=== PATIENT | male | born 1985 | race Caucasian/White ===

== ENCOUNTER 2017-06-23 20:08 | Inpatient (IN) | payer MEDICARE ==
[2017-06-23] MEDS ORDERED: HALOPERIDOL LACTATE 5 MG/ML 1 ML VIAL IM STA (21:00)
[2017-06-23] MEDS ORDERED: diphenhydrAMINE 50 MG/ML 1 ML VIAL IM STA (21:00)
[2017-06-23] MEDS ORDERED: LORazepam 2 MG/ML INJ IM STA (21:00)
[2017-06-23 21:17] LABS: Basophils # (A) 0.1 k/uL (0-0.2); Basophils % (A) 0 %; Eosinophils # (A) 0.3 k/uL (0-0.7); Eosinophils % (A) 1 %; HCT 51.6 % (39.0-53.0); HGB 16.8 gm/dL (13.0-17.5); Lymphocytes % (A) 9 %; MCHC 32.5 g/dL (31.0-37.0); MCV 92.1 fL (80.0-100.0); Mean Platelet Volume 9.8; Monocytes # (A) 1.3 k/uL (0-1.0); Monocytes % (A) 6 %; Neutrophils # (A) 17.4 k/uL (1.3-7.7); Neutrophils % (A) 82 %; Platelet Count 244 k/uL (150-450); RDW 14.7 % (11.5-15.5); WBC 21.3 k/uL (3.8-10.6)
[2017-06-23 21:26] LABS: ALT 46 U/L (21-72); AST 36 U/L (17-59); Albumin 4.9 g/dL (3.5-5.0); Alkaline Phosphatase 116 U/L (38-126); Anion Gap 26 mmol/L; Blood Urea Nitrogen 13 mg/dL (9-20); Calcium 10.3 mg/dL (8.4-10.2); Carbon Dioxide 18 mmol/L (22-30); Chloride 105 mmol/L (98-107); Glucose 91 mg/dL (74-99); Potassium 4.2 mmol/L (3.5-5.1); Sodium 149 mmol/L (137-145); Total Bilirubin 1.1 mg/dL (0.2-1.3); Total Protein 7.2 g/dL (6.3-8.2)
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
[2017-06-23] MEDS ORDERED: SODIUM CHLORIDE 0.9% 1,000 ML IV ONE (22:28)
[2017-06-23] MEDS ORDERED: SODIUM CHLORIDE 0.9% 1,000 ML IV STA (23:51)
[2017-06-24 00:17] LABS: Appearance,Urine Clear (Clear); Bilirubin,Urine Negative (Negative); Blood,Urine Negative (Negative); Color,Urine Yellow; Glucose,Urine (UA) Negative (Negative); Ketones,Urine 2+ (Negative); Leukocyte Esterase,Urine Negative (Negative); Nitrite,Urine Negative (Negative); Protein,Urine Trace (Negative); Specific Gravity,Urine 1.023 (1.001-1.035)
[2017-06-24 00:40] LABS: Amphetamine Screen,Urine Not Detected (NotDetected); Barbiturate Screen,Urine Not Detected (NotDetected); Benzodiazepines Screen,Urine Not Detected (NotDetected); Cocaine Screen,Urine Not Detected (NotDetected); Methadone Screen, Urine Not Detected (NotDetected); Opiate Screen,Urine Not Detected (NotDetected); Oxycodone Screen, Urine Not Detected (NotDetected); Phencyclidine Screen,Urine Not Detected (NotDetected); Tricyclic Antidepressant,Urine Not Detected (NotDetected)
[2017-06-24 00:41] LABS: Urn Cannabinoid Scrn Not Detected (NotDetected)
[2017-06-24 01:40] LABS: Basophils % (A) 0 %; Eosinophils # (A) 0.2 k/uL (0-0.7); Eosinophils % (A) 1 %; HCT 44.4 % (39.0-53.0); HGB 14.8 gm/dL (13.0-17.5); Lymphocytes # (A) 1.1 k/uL (1.0-4.8); Lymphocytes % (A) 8 %; MCH 30.6 pg (25.0-35.0); MCHC 33.3 g/dL (31.0-37.0); Mean Platelet Volume 7.5; Monocytes # (A) 0.6 k/uL (0-1.0); Monocytes % (A) 4 %; Neutrophils % (A) 86 %; Platelet Count 191 k/uL (150-450); RBC 4.83 m/uL (4.30-5.90); RDW 13.9 % (11.5-15.5)
[2017-06-24 01:55] LABS: Anion Gap 10 mmol/L; Blood Urea Nitrogen 12 mg/dL (9-20); Calcium 9.2 mg/dL (8.4-10.2); Carbon Dioxide 25 mmol/L (22-30); Chloride 109 mmol/L (98-107); Glucose 87 mg/dL (74-99); Sodium 144 mmol/L (137-145)
[2017-06-24] MEDS ORDERED: LORazepam 2 MG/ML INJ IV STA (14:46)
[2017-06-24] MEDS ORDERED: MAGNESIUM HYDROXIDE 2,400 MG/10 ML CUP PO PRN (18:18)
[2017-06-24] MEDS ORDERED: ZIPRASIDONE 20 MG VIAL IM PRN (18:18)
[2017-06-24] MEDS ORDERED: ACETAMINOPHEN TAB 325 MG TAB PO PRN (18:18)
[2017-06-24] MEDS ORDERED: MAG HYDROX/AL HYDROX/SIMETH 30 ML CUP PO PRN (18:18)
[2017-06-24] MEDS ORDERED: OLANZapine ODT 10 MG TAB PO PRN (18:27)
[2017-06-24] MEDS ORDERED: LORazepam 2 MG/ML INJ IM PRN (18:30)
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
[2017-06-25 07:50] LABS: HCT 44.6 % (39.0-53.0); HGB 15.3 gm/dL (13.0-17.5); MCH 30.9 pg (25.0-35.0); MCHC 34.2 g/dL (31.0-37.0); MCV 90.2 fL (80.0-100.0); Mean Platelet Volume 7.1; Platelet Count 217 k/uL (150-450); RBC 4.95 m/uL (4.30-5.90); RDW 12.7 % (11.5-15.5); WBC 10.6 k/uL (3.8-10.6)
[2017-06-25 08:17] LABS: Anion Gap 11 mmol/L; Blood Urea Nitrogen 8 mg/dL (9-20); Calcium 9.7 mg/dL (8.4-10.2); Carbon Dioxide 24 mmol/L (22-30); Chloride 106 mmol/L (98-107); Glucose 93 mg/dL (74-99); Potassium 4.1 mmol/L (3.5-5.1); Sodium 141 mmol/L (137-145)
[2017-06-25] MEDS: NICOTINE 14MG/24HR PATCH TRANSDERM SCH (08:32)
--- NOTE | 2017-06-25 11:01 | XR ---
EXAMINATION TYPE: XR chest 1V DATE OF EXAM: 06/25/2017 CLINICAL HISTORY: Cough and congestion. TECHNIQUE: Single AP portable frontal upright view of the chest is obtained. COMPARISON: None FINDINGS: There is no focal air space opacity, pleural effusion, or pneumothorax seen. The cardiac silhouette size is within normal limits. The osseous structures are intact. IMPRESSION: No suspicious acute pulmonary process.
--- NOTE | 2017-06-25 11:23 | P.PN ---
Subjective Progress Note Date: 06/25/17 Patient has no complaints, speech appears pressured, unable to sit still, looking around wildly. No acute events overnight Objective - Vital Signs Vital signs: Vital Signs Temp 97.5 F L 06/25/17 02:57 Pulse 96 06/25/17 02:57 Resp 18 06/25/17 02:57 BP 116/83 06/25/17 02:57 Pulse Ox 98 06/24/17 19:09 Intake & Output 06/24/17 06/25/17 06/25/17 18:59 06:59 18:59 Weight 112.7 kg - Exam Constitutional: No acute distress, conversant, pleasant Eyes: Anicteric sclerae, moist conjunctiva, no lid-lag, PERRLA ENMT: NC/AT,Oropharynx clear, no erythema, exudates Neck:Supple, FROM, no masses, or JVD, No carotid bruits; No thyromegaly Lungs: Clear to auscultation, Clear to percussion, Normal respiratory effort, no accessory muscle use Cardiovascular: Heart regular in rate and rhythm, No murmurs, gallops, or rubs no peripheral edema Abdominal: Soft Nontender, nom distended, no guarding, no rebound or rigidity, Normoactive bowel sounds No hepatomegaly, No splenomegaly, No palpable mass No abdominal wall hernia noted Skin: Normal temperature, tone, texture, turgor, No induration No subcutaneous nodules, No rash, lesions, No ulcers Extremities:No digital cyanosis No clubbing, Pedal pulses intact and symmetrical Radial pulses intact and symmetrical Normal gait and station, No calf tenderness Psychiatric: Alert and oriented to person, place and time, manic affect, tangential speech, pressured speech appears anxious, Neuro: Muscles Strength 5/5 in all 4 extremities, Sensation to light touch grossly present throughout, Cranial nerves II-XII grossly intact. No focal sensory deficits - Labs CBC & Chem 7: 06/25/17 07:27 06/25/17 07:27 Labs: Abnormal Lab Results - Last 24 Hours (Table) 06/25/17 Range/Units 07:27 BUN 8 L (9-20) mg/dL Creatinine 0.56 L (0.66-1.25) mg/dL Assessment and Plan Assessment: leukocytosis * Resolved, likely reactive -Decreased without any antibiotic intervention -Chest x-ray negative for any infectious etiology -Urinalysis negative Hypernatremia with hypercalcemia * resolved -Likely secondary to dehydration -Status post IV fluids -Normal BMP Delusions/hallucinations -Your psych management Patient medically stable sign off today will defer to management per psychiatry
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
[2017-06-25] MEDS ORDERED: LITHIUM CARBONATE 300 MG CAP PO STA (16:52)
[2017-06-25] MEDS: LORazepam 1 MG TAB PO PRN (17:32)
[2017-06-25] MEDS: LITHIUM CARBONATE 300 MG CAP PO SCH (21:13)
[2017-06-25] MEDS: OLANZapine 10 MG TAB PO SCH (21:13)
[2017-06-26] MEDS: NICOTINE 14MG/24HR PATCH TRANSDERM SCH (09:00)
[2017-06-26] MEDS: LITHIUM CARBONATE 300 MG CAP PO SCH ×3 (09:00→20:54)
--- NOTE | 2017-06-26 14:52 | P.PN ---
Progress Note - Text Date of service: 06/27/2017 Chief complaint: "I want to leave here " Subjective: The patient has been seen today as follow-up, chart reviewed, case discussed with the treatment team. Patient slept about more than 6 hours last night. Patient has been not going to any groups or other unit activities. Patient reports fair appetite. The patient presented slightly better with less tangential and redirected. He still has racing thoughts with flight of ideas and very fixated on leaving here. First I was informed by nurses that he refused his morning medications but he agreed to take them after he met with me and we discussed the medications. The patient reported no suicidal thoughts and denies any hallucinations but he still very paranoid, has minimal interactions with others and at times very loud and bizarre speech. The patient is compliant with his medications and denies any adverse reactions. Review of other systems: Patient denies any physical symptoms besides what has been mentioned above. No breathing problems, no chest pain reported today. Objective: Vitals has been reviewed. Mental status examination; Appearance: The patient appears stated age, disheveled, overweight. Gait/posture: Normal gait, with normal arm swinging and no abnormal movements. Attitude and behavior: Argumentative, to some degree combative, intermittent eye contact. Motor activity: Increased and agitated. Speech: Hyper verbal, pressured, loud. Mood: Very irritable and at times agitated Affect: Expansive and labile Thought form: Circumstantial, tangential, flight of ideas. Thought content, disorganized denies suicidal thoughts denies homicidal thoughts but apparently paranoid. Perception: Denies any hallucinations but appears to respond to internal stimuli. Attention: No major impairment. Orientation: oriented to time, place, person and situation. Insight and judgment: Patient has poor judgment and insight about his psychiatric illness but he has better insight about psychiatric treatment. Assessment: Rule out bipolar disorder manic episode with psychotic features Rule out schizoaffective disorder bipolar type Plan: Continue with inpatient psychiatric hospitalization for monitoring and continue treatment. Continue group therapy and other unit activities. Continue psychiatric medications: Zyprexa for psychotic symptoms and [place] as a mood stabilizer Will obtain lithium level after 3 days of stabilization on the medication and consider further adjustment of the dose guided by the level.
[2017-06-26] MEDS: OLANZapine 10 MG TAB PO SCH (20:54)
[2017-06-27] MEDS: NICOTINE 14MG/24HR PATCH TRANSDERM SCH (10:15)
[2017-06-27] MEDS: LITHIUM CARBONATE 300 MG CAP PO SCH ×3 (10:15→21:06)
--- NOTE | 2017-06-27 15:54 | P.PN ---
Progress Note - Text Date of service: 06/27/2017 Chief complaint: "I have all the paper to let me go" Subjective: The patient has been seen today as follow-up, chart reviewed, case discussed with the treatment team. Patient slept about 5 hours last night. Patient has been going to very few groups and other unit activities. Patient reports fair appetite. Patient presents the same as yesterday, psychotic, racing, circumstantial and tangential. He brought to me a copy of the certificate paper and told me this paper will mandate me to release him from the hospital today. The patient was redirected but not able to fully understand his psychiatric condition and requirements to get discharged including stabilization of his mental illness. Patient still has bizarre talk about his father is coming to take him. Patient still hyper verbal and circumstantial. He denies S/H ideation. He denies A/V hallucinations but patient is not fully reliable in his history. Patient is not aggressive but he could be yelling and has eye starring sometimes. The patient is compliant with his medications and denies any adverse reactions. Review of other systems: Patient denies any physical symptoms besides what has been mentioned above. No breathing problems, no chest pain reported today. Objective: Vitals has been reviewed. Mental status examination; Appearance: The patient appears stated age, disheveled, overweight. Gait/posture: Normal gait, with normal arm swinging and no abnormal movements. Attitude and behavior: Argumentative, to some degree combative, intermittent eye contact. Motor activity: Increased and agitated. Speech: Hyper verbal, pressured, loud. Mood: Very irritable and at times agitated Affect: Expansive and labile Thought form: Circumstantial, tangential, flight of ideas. Thought content, disorganized denies suicidal thoughts denies homicidal thoughts but apparently paranoid. Perception: Denies any hallucinations but appears to respond to internal stimuli. Attention: No major impairment. Orientation: oriented to time, place, person and situation. Insight and judgment: Patient has poor judgment and insight about his psychiatric illness but he has better insight about psychiatric treatment. Assessment: Rule out bipolar disorder manic episode with psychotic features Rule out schizoaffective disorder bipolar type Plan: Continue with inpatient psychiatric hospitalization for monitoring and continue treatment. Continue group therapy and other unit activities. Continue psychiatric medications: Increase Zyprexa for better stabilization of psychotic symptoms and increase [place] to address mood instability. Will obtain lithium level on Friday.
[2017-06-27] MEDS: OLANZapine 10 MG TAB PO SCH (21:06)
[2017-06-27] MEDS: LORazepam 1 MG TAB PO PRN (23:27)
[2017-06-28] MEDS: OLANZapine 5 MG TAB PO SCH (09:42)
[2017-06-28] MEDS: LITHIUM CARBONATE 300 MG CAP PO SCH ×3 (09:42→21:00)
[2017-06-28] MEDS: NICOTINE 14MG/24HR PATCH TRANSDERM SCH (09:42)
--- NOTE | 2017-06-28 14:18 | P.PN ---
Progress Note - Text interval history: The patient is found in his room he follows me to an interview room. He states he wants to be discharged needs to be home to be around family. He reports living in [place]. He is prescribed Zyprexa and lithium carbonate. He was just admitted on the third of this month. We are waiting for the medications to demonstrate efficacy and he has a lithium level scheduled for Friday morning. He reports attending some groups area and Mental status exam: The patient is an overweight male appearing his stated age. He is dressed in his own clothing he has a disheveled appearance. Eye contact is appropriate he is verbose he has spontaneous speech. Thought process can be disorganized at times. He is reporting no thoughts of self-harm or harm to others. He minimizes symptoms but it is likely he continues to experience some delusional thought. Insight and judgment impaired. He demonstrates no verbal or physical aggressiveness he demonstrates no abnormal involuntary movements. Plan: The patient will continue on his current psychotropic medications. Vital signs reviewed. We will monitor him for safety and encourage full participation in the milieu.
[2017-06-28] MEDS: OLANZapine 10 MG TAB PO SCH (21:00)
[2017-06-29] MEDS: NICOTINE 14MG/24HR PATCH TRANSDERM SCH (10:03)
[2017-06-29] MEDS: OLANZapine 5 MG TAB PO SCH (10:03)
[2017-06-29] MEDS: LITHIUM CARBONATE 300 MG CAP PO SCH ×3 (10:03→21:14)
--- NOTE | 2017-06-29 15:01 | P.PN ---
Progress Note - Text Interval history: The patient is found in his room he follows me to an interview room. He has been isolating in his room most of the day. He again expresses his desire to be back home with his family. He understands we need to stabilize symptoms with medication. He reports compliance with the Zyprexa and lithium. He reports his appetite stable and he slept last night. Mental status exam: The patient is an overweight male appearing his stated age. He is pleasant and cooperative. He endorses a troubled mood he becomes tearful when discussing the fact he misses his family. He continues to have some disorganization of his thought process. He is able to answer some questions in a linear fashion. He is reporting no suicidal or homicidal ideation. He demonstrates no verbal or physical aggressiveness. Insight and judgment limited. Plan: The patient will continue on his current medications. We will continue to monitor him for safety he is encouraged to participate fully in the milieu. It appears the lithium was adjusted on the fifth we will allow that more time before drawing a level. Vital signs reviewed.
[2017-06-29] MEDS: OLANZapine 10 MG TAB PO SCH (21:14)
[2017-06-30] MEDS: OLANZapine 5 MG TAB PO SCH (11:38)
[2017-06-30] MEDS: NICOTINE 14MG/24HR PATCH TRANSDERM SCH ×2 (11:38→11:43)
[2017-06-30] MEDS: LITHIUM CARBONATE 300 MG CAP PO SCH (11:38)
[2017-06-30] MEDS ORDERED: LITHIUM CARBONATE 300 MG CAP PO ONE (21:00)
[2017-06-30] MEDS: OLANZapine 10 MG TAB PO SCH (21:07)
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
[2017-07-01] MEDS: NICOTINE 14MG/24HR PATCH TRANSDERM SCH (08:21)
[2017-07-01 09:40] LABS: Basophils % (A) 0 %; Eosinophils # (A) 0.1 k/uL (0-0.7); Eosinophils % (A) 1 %; HCT 44.3 % (39.0-53.0); HGB 15.3 gm/dL (13.0-17.5); Lymphocytes # (A) 1.2 k/uL (1.0-4.8); Lymphocytes % (A) 12 %; MCH 30.7 pg (25.0-35.0); MCHC 34.5 g/dL (31.0-37.0); MCV 88.8 fL (80.0-100.0); Monocytes # (A) 0.5 k/uL (0-1.0); Monocytes % (A) 5 %; Neutrophils # (A) 7.9 k/uL (1.3-7.7); Neutrophils % (A) 80 %; Platelet Count 270 k/uL (150-450); RBC 4.98 m/uL (4.30-5.90); RDW 12.3 % (11.5-15.5); WBC 9.8 k/uL (3.8-10.6)
[2017-07-01] MEDS: LITHIUM CARBONATE 300 MG CAP PO SCH (20:33)
[2017-07-01] MEDS: OLANZapine 10 MG TAB PO SCH (20:33)
[2017-07-02] MEDS: NICOTINE 14MG/24HR PATCH TRANSDERM SCH (08:48)
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
[2017-07-02] MEDS: OLANZapine 10 MG TAB PO SCH (21:10)
[2017-07-02] MEDS: LITHIUM CARBONATE 300 MG CAP PO SCH (21:10)
[2017-07-03] MEDS: NICOTINE 14MG/24HR PATCH TRANSDERM SCH (08:20)
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
[2017-07-03] MEDS: LITHIUM CARBONATE 300 MG CAP PO SCH (21:37)
[2017-07-03] MEDS: OLANZapine 10 MG TAB PO SCH (21:37)
[2017-07-04 06:38] VITALS: BP 139/80; PULSE 86; RESP 18; TEMP 97.8
[2017-07-04] MEDS: NICOTINE 14MG/24HR PATCH TRANSDERM SCH (10:00)
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
== END 2017-07-04 16:55 | disposition home or self-care (01) | DRG 885 ==
LOC: EC 20:08 → 3MHU 06-24 18:14
PROVIDERS: ADMIT Psychiatry & Neurology Psychiatry; ATTEND Psychiatry & Neurology Psychiatry
DX: F33.3 Major depressive disorder, recurrent, severe with psychotic symptoms (principal); E87.0 Hyperosmolality and hypernatremia; E83.52 Hypercalcemia; F43.10 Post-traumatic stress disorder, unspecified; G89.29 Other chronic pain; M54.9 Dorsalgia, unspecified; Z62.811 Personal history of psychological abuse in childhood; Z62.810 Personal history of physical and sexual abuse in childhood; R45.1 Restlessness and agitation; F41.9 Anxiety disorder, unspecified; R45.87 Impulsiveness; E86.0 Dehydration; Y92.481 Parking lot as the place of occurrence of the external cause; Z87.891 Personal history of nicotine dependence; V43.52XA Car driver injured in collision with other type car in traffic accident, initial encounter; Z78.1 Physical restraint status; Z91.19 Patient's noncompliance with other medical treatment and regimen; Z91.83 Wandering in diseases classified elsewhere; Z81.8 Family history of other mental and behavioral disorders
CPT/HCPCS: 36415; 71045; 80048; 80053; 80178; 80306; 81003; 82075; 84443; 85025; 85027; 96361; 96372; 96374; 99285